=== PATIENT | male | born 1985 | race Caucasian/White ===

== ENCOUNTER 2021-04-17 11:55 | Emergency (ER) | payer OTHER ==
[~2021-04-17] VITALS: Ht 182.9 cm; Wt 97.5 kg
[2021-04-17] MEDS ORDERED: ONDANSETRON ODT 4 MG TAB.RAPDIS SL ONE (12:15)
[2021-04-17] MEDS ORDERED: IV NORMAL SALINE 1000 ML BAG IV ONE (12:15)
[2021-04-17 12:32] LABS: *BILIRUBIN,URIN 1+ (NEGATIVE); *BLOOD, URINE NEGATIVE (NEGATIVE); *CLARITY,URINE CLEAR (CLEAR); *COLOR,URINE DARK YELLOW (YELLOW); *KETONES,URINE 1+ (NEGATIVE); *UROBILINOGEN,URINE 0.2 E.U./dl (NORMAL); LEUKOCYTE ESTERASE ,URINE NEGATIVE (NEGATIVE); NITRITE, URINE NEGATIVE (NEGATIVE); UGLUCOSE NEGATIVE (NEGATIVE)
[2021-04-17 12:34] LABS: HEMATOCRIT 44.1 % (36.7-47.1); MEAN CORPUSCULAR HEMOGLOBIN 31.2 uug (23.8-33.4); PLATELET COUNT (AUTO) 321 K/uL (152-348)
[2021-04-17 12:41] LABS: CREATININE 1.1 mg/dL (0.6-1.3); POTASSIUM 4.2 mmol/L (3.5-5.1)
[2021-04-17] MEDS ORDERED: ONDANSETRON ODT 4 MG TAB.RAPDIS ONE (12:41)
[2021-04-17 12:46] LABS: BILIRUBIN,TOTAL 0.7 mg/dL (0.2-1.0); TOTAL PROTEIN, SERUM 8.6 g/dL (6.4-8.2)
--- NOTE | 2021-04-17 13:20 | NUR ---
Patient discharged to home in stable condition. Written and verbal after care instructions given. Patient verbalizes understanding of instructions. Stressed follow up or return to ER for worsening s/s.
[2021-04-17 13:23] VITALS: BP 116/73
== END 2021-04-17 13:23 | disposition home or self-care (01) ==
LOC: ER 12:04
DX: U07.1 COVID-19 (principal); R42 Dizziness and giddiness; G93.89 Other specified disorders of brain; R43.8 Other disturbances of smell and taste
CPT/HCPCS: 36415; 85025; A4663; J7030; Q0162

== ENCOUNTER 2021-04-24 09:33 | Emergency (ER) | payer OTHER ==
[~2021-04-24] VITALS: Ht 182.9 cm; Wt 97.5 kg
[2021-04-24] MEDS ORDERED: IBUPROFEN 800 MG TABLET PO ONE (10:15)
--- NOTE | 2021-04-24 10:27 | NUR ---
PT IS IN ROOM #2B. DR BLEDSOE EVALUATED THE PT.
[2021-04-24] MEDS ORDERED: IBUPROFEN 800 MG TABLET ONE (10:28)
[2021-04-24 11:04] LABS: HEMATOCRIT 40.7 % (36.7-47.1); MEAN CORPUSCULAR HEMOGLOBIN 30.7 uug (23.8-33.4); MEAN CORPUSCULAR VOLUME 91.4 fL (73.0-96.2); PLATELET COUNT (AUTO) 605 K/uL (152-348)
[2021-04-24 11:13] LABS: CREATININE 0.8 mg/dL (0.6-1.3); POTASSIUM 4.5 mmol/L (3.5-5.1)
[2021-04-24] MEDS ORDERED: IV NORMAL SALINE 250 ML IV ONE (12:16)
[2021-04-24] MEDS ORDERED: IOHEXOL 350 100 ML INFUS..BTL ONE (12:16)
[2021-04-24] MEDS ORDERED: SWABABLE VALVE TRANSFER SET EA MC ONE (12:16)
--- NOTE | 2021-04-24 13:19 | NUR ---
PT WAS EVALUATED BY DR BLEDSOE. PT WAS D/C'd TO HOME. D/C INSTRUCTIONS GIVEN TO THE PT BY DR BLEDSOE.
[2021-04-24 13:22] VITALS: BP 136/88
[2021-04-24] MEDS ORDERED: APIX5TAB PO (13:25)
== END 2021-04-24 13:30 | disposition home or self-care (01) ==
LOC: ER 09:35
DX: U07.1 COVID-19 (principal); I26.99 Other pulmonary embolism without acute cor pulmonale; J12.82 Pneumonia due to coronavirus disease 2019
CPT/HCPCS: 36415; 71045; 71275; 80048; 84484; 85025; 85379; 87426; 93005; 99285; Q9967; 70030-TC; A4663; J7050

== ENCOUNTER 2021-04-29 07:06 | Inpatient (IN) | payer OTHER ==
[~2021-04-29] VITALS: Ht 185.4 cm; Wt 98.4 kg
[~2021-04-29 07:06] MED LIST: APIX5TAB PO
[2021-04-29 08:20] LABS: HEMATOCRIT 39.3 % (36.7-47.1); MEAN CORPUSCULAR HEMOGLOBIN 30.7 uug (23.8-33.4); MEAN CORPUSCULAR VOLUME 89.8 fL (73.0-96.2); PLATELET COUNT (AUTO) 509 K/uL (152-348)
[2021-04-29 08:28] LABS: CREATININE 0.9 mg/dL (0.6-1.3); POTASSIUM 4.4 mmol/L (3.5-5.1)
[2021-04-29 08:43] LABS: BILIRUBIN,TOTAL 0.5 mg/dL (0.2-1.0); TOTAL PROTEIN, SERUM 8.9 g/dL (6.4-8.2)
[2021-04-29] MEDS ORDERED: MORPHINE SULFATE 4 MG/1 ML DISP.SYRIN IV ONE (09:15)
[2021-04-29] MEDS ORDERED: IV NORMAL SALINE 1000 ML BAG IV ONE (09:15)
[2021-04-29] MEDS ORDERED: ONDANSETRON 4 MG/2 ML VIAL IV ONE ×2 (09:15→14:15)
[2021-04-29] MEDS ORDERED: MORPHINE SULFATE 4 MG/1 ML DISP.SYRIN ONE (09:21)
[2021-04-29] MEDS ORDERED: ONDANSETRON 4 MG/2 ML VIAL ONE ×2 (09:21→14:14)
[2021-04-29] MEDS ORDERED: IOHEXOL 350 100 ML INFUS..BTL ONE (09:22)
[2021-04-29] MEDS ORDERED: IV NORMAL SALINE 250 ML IV ONE (09:22)
[2021-04-29] MEDS ORDERED: SWABABLE VALVE TRANSFER SET EA MC ONE (09:22)
--- NOTE | 2021-04-29 09:30 | NUR ---
Pt singed consent for CTA, placed in the chart.
--- NOTE | 2021-04-29 09:38 | NUR ---
Pt out of ER for CT.
--- NOTE | 2021-04-29 09:58 | NUR ---
Pt back from CT, resting in bed, denies pain.
[2021-04-29] MEDS ORDERED: ENOXAPARIN SODIUM 100 MG/ML DISP.SYRIN SQ ONE ×3 (10:30→20:54)
[2021-04-29] MEDS ORDERED: MAGNESIUM HYDROXIDE 30 ML LIQUID UDC PO PRN (13:00)
[2021-04-29] MEDS ORDERED: TEMAZEPAM 7.5 MG CAPSULE PO PRN (13:00)
[2021-04-29] MEDS ORDERED: ALBUTEROL SULFATE 8 GM HFA.AER.AD IH PRN (13:00)
[2021-04-29] MEDS ORDERED: ONDANSETRON 4 MG/2 ML VIAL IV PRN (13:00)
--- NOTE | 2021-04-29 13:24 | NUR ---
Patient is resting comfortably in bed with eyes closed, NAD noted.
[2021-04-29] MEDS ORDERED: HYDROMORPHONE 1 MG/1 ML DISP.SYRIN ONE (14:14)
[2021-04-29] MEDS ORDERED: HYDROMORPHONE 1 MG/1 ML DISP.SYRIN IV ONE (14:15)
--- NOTE | 2021-04-29 16:20 | NUR ---
Pt C/O Rt sided chest pain/crushing, [place] 5/325 po given.
[2021-04-29] MEDS ORDERED: AZITHROMYCIN 250 MG TABLET ONE (16:24)
[2021-04-29] MEDS: HYDROCODONE/APAP 5-325MG TABLET PO PRN ×2 (16:24→20:55)
[2021-04-29] MEDS: DEXAMETHASONE SOD PHOSPHATE 4 MG INJ IV SCH (16:24)
[2021-04-29] MEDS: ASCORBIC ACID 500 MG TABLET PO SCH (16:25)
[2021-04-29] MEDS ORDERED: DEXAMETHASONE SOD PHOSPHATE 10 MG INJ ONE (16:25)
[2021-04-29] MEDS ORDERED: CHOLECALCIFEROL 1,000 UNIT TABLET ONE (16:25)
[2021-04-29] MEDS: AZITHROMYCIN 250 MG TABLET PO SCH (16:25)
[2021-04-29] MEDS ORDERED: ASCORBIC ACID 500 MG TABLET ONE (16:25)
[2021-04-29] MEDS: CHOLECALCIFEROL 1,000 UNIT TABLET PO SCH (16:25)
[2021-04-29] MEDS ORDERED: HYDROCODONE/APAP 5-325MG TABLET ONE ×2 (16:27→20:55)
--- NOTE | 2021-04-29 17:33 | NUR ---
Dr Cabral at the bedside for MSE.
--- NOTE | 2021-04-29 19:00 | NUR ---
Hands off report given to Jose C BLACKWOOD.
--- NOTE | 2021-04-29 19:25 | NUR ---
pt a/o denies pain.
[2021-04-29] MEDS: ENOXAPARIN SODIUM 100 MG/ML DISP.SYRIN SQ SCH (20:55)
--- NOTE | 2021-04-29 22:13 | NUR ---
pt resting, states pain med was effective.
--- NOTE | 2021-04-30 05:41 | NUR ---
report to Agnieszka BLACKWOOD in ICU pt to go to room 4.
--- NOTE | 2021-04-30 06:20 | NUR ---
received patient and report from ER nurse , patient is awake , oriented , able to follow command , with non productive cough , oxygen 2l nc , sinus tachycardia . no fever, , iv intact on rac , complains of chest pain when coughing , 6/10
--- NOTE | 2021-04-30 06:27 | NUR ---
pt transported to room icu 4 pt is snehal status. Agnieszka in room to receive pt. pt transported via [facility] with all belongings.
[2021-04-30 06:30] VITALS: BP 127/71
[2021-04-30] MEDS: HYDROCODONE/APAP 5-325MG TABLET PO PRN (06:49)
--- NOTE | 2021-04-30 07:30 | NUR ---
Patient received. AAOx4. vitals stalbe in low sinus tachycardia. On 2LNC slightly tachypneic with some shortness of breath with exertion. Voiding via urinal. IV line patent. Will complete admission process and continue with care plan.
--- NOTE | 2021-04-30 07:30 | NUR ---
Patient seen by die repair Dr. Young.
--- NOTE | 2021-04-30 07:43 | NUR ---
HOME MEDICATIONS ENDORSED TO DAY SHIFT , ELOQUIS AND TYLENOL BOTTLES TO BE BROUGHT TO PHARMACY
[2021-04-30 08:00] VITALS: BP 116/72
--- NOTE | 2021-04-30 08:13 | NUR ---
1 Bottle of Eliquis and 1 bottle of otc tylenol placed in a pharmacy bad and taken down to pharmacy, at this time pt. refusing to signed stating "I wanna keep my medications at bedside and I don't want no one to take possession of it". At this time pt. educated on hospital policies and about safety issues, He was also explained that hospital is not responsible if medications gets lost while at bedside. Pharmacist informed and medication taken down and signed by nursing fabric coating supervisor and med. receipt placed in pt's file.
--- NOTE | 2021-04-30 08:22 | NUR ---
Admitting physician notified of pt's arrival to the unit.
[2021-04-30] MEDS: PANTOPRAZOLE SODIUM 40 MG TABLET.DR PO SCH (09:02)
[2021-04-30] MEDS: CHOLECALCIFEROL 1,000 UNIT TABLET PO SCH (09:02)
[2021-04-30] MEDS: ASCORBIC ACID 500 MG TABLET PO SCH (09:02)
[2021-04-30] MEDS: ENOXAPARIN SODIUM 100 MG/ML DISP.SYRIN SQ SCH ×2 (09:12→20:18)
[2021-04-30] MEDS: DEXAMETHASONE SOD PHOSPHATE 4 MG INJ IV SCH (09:15)
[2021-04-30 10:56] LABS: HEMATOCRIT 36.3 % (36.7-47.1); MEAN CORPUSCULAR VOLUME 91.2 fL (73.0-96.2); PLATELET COUNT (AUTO) 443 K/uL (152-348)
[2021-04-30 11:29] LABS: BILIRUBIN,TOTAL 0.3 mg/dL (0.2-1.0); MAGNESIUM 2.1 mg/dL (1.8-2.4); TOTAL PROTEIN, SERUM 8.2 g/dL (6.4-8.2)
--- NOTE | 2021-04-30 11:54 | NUR ---
Clinical Social Work Note JANNA consult was requested for support with financial resources. Patient is a 36 male who is alert and oriented x4. Patient stated Addendum: 04/30/21 at 1201 by JANNA LOAIZA Clinical Social Work Note JANNA consult was requested for support with financial resources. Patient is a 36 male who is alert and oriented x4. Patient presents with a calm mood and congruent affect. JANNA inquired about specific financial resources patient is in need of. Patient stated that he does not need financial resources, but that he was interested in mental health resources. JANNA provided patient with mental health agencies in the [place]. JANNA provided the following resources to patient: [facility] [address], [address] [place] [address] , [facility] [address] [place] [address] , and [facility] [address] [place] [place], [place] [id number] [phone]. Patient stated he was not in need of additional resources.
[2021-04-30 12:00] VITALS: BP 123/77
[2021-04-30] MEDS: HYDROMORPHONE 1 MG/1 ML DISP.SYRIN IV PRN ×2 (14:59→20:42)
[2021-04-30] MEDS: AZITHROMYCIN 250 MG TABLET PO SCH (15:56)
[2021-04-30 16:00] VITALS: BP 136/92
[2021-04-30] MEDS: ACETAMINOPHEN 325 MG TABLET PO PRN (17:56)
[2021-04-30 20:00] VITALS: BP 118/62
--- NOTE | 2021-04-30 20:07 | NUR ---
received patient awake , able to follow command , room air , iv intact , denies distress , eating dinner
--- NOTE | 2021-04-30 21:09 | NUR ---
dr harris is here at bedside , had a long conversation with the patient
[2021-04-30 22:00] VITALS: BP 109/55
[2021-05-01] VITALS (8 sets, daily range): BP systolic 97–128; BP diastolic 62–85
[2021-05-01 05:06] LABS: HEMATOCRIT 34.6 % (36.7-47.1); MEAN CORPUSCULAR HEMOGLOBIN 30.9 uug (23.8-33.4); MEAN CORPUSCULAR VOLUME 91.7 fL (73.0-96.2); PLATELET COUNT (AUTO) 388 K/uL (152-348)
[2021-05-01 05:25] LABS: CREATININE 0.7 mg/dL (0.6-1.3); MAGNESIUM 2.2 mg/dL (1.8-2.4); PHOSPHOROUS 3.2 mg/dL (2.5-4.9); POTASSIUM 4.7 mmol/L (3.5-5.1)
[2021-05-01] MEDS: HYDROMORPHONE 1 MG/1 ML DISP.SYRIN IV PRN ×2 (05:26→17:55)
[2021-05-01] MEDS: PANTOPRAZOLE SODIUM 40 MG TABLET.DR PO SCH (06:06)
--- NOTE | 2021-05-01 06:30 | NUR ---
patient is awake , able to follow command , on room air , iv intact , continent , dilaudid given one hour prior , current pain level 1/ 10
--- NOTE | 2021-05-01 07:00 | NUR ---
Received pt. AAOx4. vitals stable on room air. Hemodynamically stable.
[2021-05-01] MEDS: ASCORBIC ACID 500 MG TABLET PO SCH (08:42)
[2021-05-01] MEDS: DEXAMETHASONE SOD PHOSPHATE 4 MG INJ IV SCH (08:42)
[2021-05-01] MEDS: CHOLECALCIFEROL 1,000 UNIT TABLET PO SCH (08:42)
[2021-05-01] MEDS: ENOXAPARIN SODIUM 100 MG/ML DISP.SYRIN SQ SCH ×2 (08:59→20:42)
[2021-05-01] MEDS: ACETAMINOPHEN 325 MG TABLET PO PRN (12:33)
[2021-05-01] MEDS: AZITHROMYCIN 250 MG TABLET PO SCH (16:27)
--- NOTE | 2021-05-01 17:40 | NUR ---
While setting up the tray for patient He stated "hey the said I can have the mediation the dilparishid".
[2021-05-02 00:01] VITALS: BP 108/69
--- NOTE | 2021-05-02 00:01 | NUR ---
Verbally communicative.
[2021-05-02 02:00] VITALS: BP 100/69
[2021-05-02 04:00] VITALS: BP 109/75
[2021-05-02] MEDS: HYDROMORPHONE 1 MG/1 ML DISP.SYRIN IV PRN ×2 (05:16→12:40)
[2021-05-02] MEDS: PANTOPRAZOLE SODIUM 40 MG TABLET.DR PO SCH (07:14)
--- NOTE | 2021-05-02 07:16 | NUR ---
Received pt. AAOX4. Hemodynamically stable, SBP within normal limits. On room air no tachypnea.
[2021-05-02 08:00] VITALS: BP 128/83
[2021-05-02] MEDS: DEXAMETHASONE SOD PHOSPHATE 4 MG INJ IV SCH (08:05)
[2021-05-02] MEDS: ASCORBIC ACID 500 MG TABLET PO SCH (08:05)
[2021-05-02] MEDS: CHOLECALCIFEROL 1,000 UNIT TABLET PO SCH (08:05)
[2021-05-02] MEDS ORDERED: APIXABAN 5 MG TABLET PO SCH (09:00)
[2021-05-02 12:00] VITALS: BP 118/66
--- NOTE | 2021-05-02 12:00 | NUR ---
Patient seen by attending physician, Rich Huynh. who updated pt. on imaging and lab results awaiting dcd orders.
[2021-05-02] MEDS ORDERED: APIX5TAB PO (12:22)
[2021-05-02] MEDS ORDERED: METH4TAB3 PO (12:22)
--- NOTE | 2021-05-02 12:30 | NUR ---
informed that at this time I spoke with medical lab scientist Rosalia when pt. was just admitted and she confirmed having the swabbs done in [facility] for covid test and again today she had confirmed having the swabs and as stated by her "I'm about to release a bunch of results".
--- NOTE | 2021-05-02 13:31 | NUR ---
DCD instructions given to patient, who verbalized understanding. Patient will be taken down via wheel chair, Premedicated for pain as requested vital s of 118/66 hr of 87 sinus. IV line dcd.
--- NOTE | 2021-05-02 13:34 | NUR ---
Dr. Villanueva called and informed that pcr results still under pending status and as stated "there's no need to resend pcr. Pt. has my number and He'll call to follow up about his pcr results".
== END 2021-05-02 14:05 | disposition home or self-care (01) | DRG 137 ==
LOC: ER 07:15 → TRANSITION 15:23 → CCU 04-30 06:02
PROVIDERS: ADMIT Internal Medicine; ATTEND Internal Medicine
DX: U07.1 COVID-19 (principal); I26.99 Other pulmonary embolism without acute cor pulmonale; J12.82 Pneumonia due to coronavirus disease 2019; J91.8 Pleural effusion in other conditions classified elsewhere; Z79.01 Long term (current) use of anticoagulants; D75.839 Thrombocytosis, unspecified; Z96.642 Presence of left artificial hip joint; Z91.81 History of falling; R74.01 Elevation of levels of liver transaminase levels
CPT/HCPCS: 36415; 70030-TC; 71045; 71275; 83605; 83615; 83735; 84100; 85025; 85730; 86140; 87040; 93005; A4663; G0378; J1100; J1170; J1650; J2270; J2405; J3535; J7030; J7050; Q0144; Q9967; U0003

== ENCOUNTER 2021-09-02 23:01 | Inpatient (IN) | payer OTHER ==
[~2021-09-02] VITALS: Ht 182.9 cm; Wt 106.8 kg
[~2021-09-02 23:01] MED LIST changes: +METH4TAB3 PO
[2021-09-03] MEDS ORDERED: METOPROLOL TARTRATE 5 MG/5 ML VIAL IVP ONE ×2 (00:10→00:15)
[2021-09-03 00:21] LABS: HEMATOCRIT 47.5 % (36.7-47.1); MEAN CORPUSCULAR HEMOGLOBIN 30.6 uug (23.8-33.4); PLATELET COUNT (AUTO) 271 K/uL (152-348)
[2021-09-03 00:39] LABS: CARBON DIOXIDE 20 mmol/L (21-32); CHLORIDE 102 mmol/L (98-107); CREATININE 1.1 mg/dL (0.6-1.3); GLUCOSE 164 mg/dL (74-106); POTASSIUM 3.9 mmol/L (3.5-5.1); UREA NITROGEN, BLOOD 16 mg/dL (7-18)
[2021-09-03 00:51] LABS: ALANINE AMINOTRANSFERASE 46 U/L (16-63); ALKALINE PHOSPHATASE 62 U/L (50-136); ASPARTATE AMINOTRANSFERASE 23 U/L (15-37); BILIRUBIN,DIRECT 0.2 mg/dL (0.0-0.2); TOTAL PROTEIN, SERUM 8.2 g/dL (6.4-8.2)
[2021-09-03] MEDS ORDERED: IOHEXOL 350 100 ML INFUS..BTL ONE (01:10)
[2021-09-03] MEDS ORDERED: SWABABLE VALVE TRANSFER SET EA MC ONE (01:10)
[2021-09-03] MEDS ORDERED: IV NORMAL SALINE 250 ML IV ONE (01:10)
--- NOTE | 2021-09-03 02:44 | NUR ---
Called [facility] for CTA to be read. they said it would take another 30mins.
[2021-09-03] MEDS ORDERED: HYDROCODONE/APAP 10-325 MG TABLET PO ONE (03:15)
[2021-09-03] MEDS ORDERED: ONDANSETRON ODT 4 MG TAB.RAPDIS SL ONE (03:15)
[2021-09-03] MEDS ORDERED: HYDROCODONE/APAP 10-325 MG TABLET ONE (03:16)
[2021-09-03] MEDS ORDERED: ONDANSETRON ODT 4 MG TAB.RAPDIS ONE (03:16)
[2021-09-03] MEDS ORDERED: HYDROMORPHONE 1 MG/1 ML DISP.SYRIN ONE ×2 (03:26→09:30)
[2021-09-03] MEDS ORDERED: ONDANSETRON 4 MG/2 ML VIAL ONE ×2 (03:26→09:30)
[2021-09-03] MEDS ORDERED: ONDANSETRON 4 MG/2 ML VIAL IV ONE (03:30)
[2021-09-03] MEDS ORDERED: HYDROMORPHONE 1 MG/1 ML DISP.SYRIN IV ONE (03:30)
[2021-09-03 03:49] LABS: *AMPHETAMINE, URINE NEGATIVE (NEGATIVE); *CANNABINOID, URINE NEGATIVE (NEGATIVE); *COCCAINE, URINE NEGATIVE (NEGATIVE); *OPIATE, URINE NEGATIVE (NEGATIVE); *PHENCYCLIDINE SCREEN,URINE NEGATIVE (NEGATIVE)
[2021-09-03] MEDS ORDERED: IV NORMAL SALINE 1000 ML BAG IV ONE ×3 (04:15→05:30)
[2021-09-03] MEDS ORDERED: APIX5TAB PO (04:33)
[2021-09-03] MEDS ORDERED: LORAZEPAM 2 MG/1 ML VIAL ONE (05:21)
[2021-09-03] MEDS ORDERED: LORAZEPAM 2 MG/1 ML VIAL IV ONE (05:30)
[2021-09-03] MEDS ORDERED: ACETAMINOPHEN 325 MG TABLET PO PRN (06:45)
[2021-09-03] MEDS ORDERED: ONDANSETRON 4 MG/2 ML VIAL IV PRN ×2 (06:45→09:45)
[2021-09-03] MEDS ORDERED: MAGNESIUM HYDROXIDE 30 ML LIQUID UDC PO PRN (06:45)
[2021-09-03] MEDS ORDERED: REMEDY ESSENTIAL ZINC PASTE 113 GM TP PRN (06:45)
--- NOTE | 2021-09-03 07:00 | NUR ---
Received patient awake in bed, alert and orientedx4. No complaints of pain/discomfort. Vitals as follows; BP-135/70 DE-115 RR-20 T-97.8 SPO2-98%
--- NOTE | 2021-09-03 08:04 | NUR ---
Called for tele bed, said nurse will call me back.
--- NOTE | 2021-09-03 08:50 | NUR ---
Patient complaints of sharp pain 7/10 on left lateral chest. Vitals as follows; BP-138/80 VT-117 RR-20 T-97.8 SPO2-97% RA. Per MD verbal order lovenox 80mg given SQ on abdomen RLQ.
[2021-09-03] MEDS ORDERED: ENOXAPARIN SODIUM 80 MG/0.8 ML DISP.SYRIN SQ ONE (08:57)
[2021-09-03] MEDS ORDERED: HYDROMORPHONE 1 MG/1 ML DISP.SYRIN IV STA (09:31)
[2021-09-03] MEDS ORDERED: ENOXAPARIN SODIUM 80 MG/0.8 ML DISP.SYRIN SQ SCH (09:45)
--- NOTE | 2021-09-03 10:00 | NUR ---
Patient stated he feels better now chest pain lateral side 05/27. Vitals; BP-121/80 TX-95 RR-18 SPO2 98%.
--- NOTE | 2021-09-03 10:05 | NUR ---
Informed admitting doctor ponce garcia in regards with patients episode of chest pain and the interventions given as ordered. said he will come to see the pt.
--- NOTE | 2021-09-03 10:22 | NUR ---
FR[employer]K AUXILIARY ponce garcia on bedside.
--- NOTE | 2021-09-03 10:46 | NUR ---
Report given to nurse jacinto, pt will be in room 309 telemetry.
--- NOTE | 2021-09-03 11:14 | NUR ---
Patient transferred to telemetry via stretcher, patient awake alert and orientedx4. No complaints of pain at this time. Vitals: BP-129/80 FL-95 RR-20 T-97 SPO2-97% RA.
--- NOTE | 2021-09-03 11:30 | NUR ---
ADMITTED VIA [facility]. ORIENTED TO SURROUNDINGS. C/O SEVERE PAIN LEFT CHEST. Donald [employer] OCCUPATIONAL THERAPIST NOTIFIED. VS STABLE. TELEMETRY SHOWS ST AT 94-96/MIN.
[2021-09-03 11:44] VITALS: BP 110/81
[2021-09-03] MEDS ORDERED: CEFTRIAXONE 1 G VIAL IV SCH (12:00)
[2021-09-03] MEDS ORDERED: APIXABAN 5 MG TABLET PO SCH (12:15)
[2021-09-03] MEDS: IV NS 1000 ML 1,000 ML IV PRN (12:50)
[2021-09-03] MEDS: CEFTRIAXONE 1 G in IV DEXTROSE 5% 50 ML IV SCH (12:51)
[2021-09-03] MEDS: MORPHINE SULFATE 2 MG/1 ML DISP.SYRIN IV PRN ×3 (12:52→22:26)
[2021-09-03 16:14] VITALS: BP 108/66
[2021-09-03] MEDS: APIXABAN 5 MG TABLET PO SCH (17:29)
--- NOTE | 2021-09-03 17:57 | NUR ---
Reassess was not done patient was in ER at that time
--- NOTE | 2021-09-03 19:00 | NUR ---
Patient alert oriented, no sob no chest pain, no complain of pain at this time, on room air, tele monitor sinus rhythm. cont to monitor.
[2021-09-03 20:00] VITALS: BP 112/73
[2021-09-04 00:17] VITALS: BP 106/67
[2021-09-04] MEDS: IV NS 1000 ML 1,000 ML IV PRN (03:50)
[2021-09-04 04:00] VITALS: BP 107/70
--- NOTE | 2021-09-04 05:02 | NUR ---
Patient asleep but arousable, no sob no chest pain at this time, cont on pain management due left chest pain, tele sinus rhythm, cont to monitor.
[2021-09-04] MEDS: MORPHINE SULFATE 2 MG/1 ML DISP.SYRIN IV PRN ×2 (06:08→08:56)
--- NOTE | 2021-09-04 06:22 | NUR ---
complain of chest area pain, requested Morphine, given as ordered, tele monitor sinus rhythm at this time, cont to monitor.
[2021-09-04 07:07] LABS: MEAN CORPUSCULAR HEMOGLOBIN 30.6 uug (23.8-33.4); MEAN CORPUSCULAR VOLUME 89.1 fL (73.0-96.2); PLATELET COUNT (AUTO) 219 K/uL (152-348)
[2021-09-04 07:30] LABS: CREATININE 0.8 mg/dL (0.6-1.3); MAGNESIUM 1.9 mg/dL (1.8-2.4); PHOSPHOROUS 2.9 mg/dL (2.5-4.9)
[2021-09-04 08:00] VITALS: BP 107/68
[2021-09-04] MEDS: APIXABAN 5 MG TABLET PO SCH ×2 (08:51→17:39)
[2021-09-04 11:04] VITALS: BP 113/69
[2021-09-04] MEDS: HYDROMORPHONE 1 MG/1 ML DISP.SYRIN IV PRN ×3 (11:58→23:05)
[2021-09-04] MEDS: CEFTRIAXONE 1 G in IV DEXTROSE 5% 50 ML IV SCH (12:00)
[2021-09-04 15:05] VITALS: BP 104/63
[2021-09-04 20:38] VITALS: BP 121/81
[2021-09-05 00:15] VITALS: BP 120/77
[2021-09-05 04:22] VITALS: BP 94/63
--- NOTE | 2021-09-05 06:38 | NUR ---
Patient alert oriented, no sob no chest pain, tele monitor sinus rhythm, no episode of tachy at this, still complain of chest pain, and headaches, medicated as ordered. cont to monitor.
--- NOTE | 2021-09-05 08:00 | NUR ---
awake alert and oriented, up and about in the room, tele SR70's, denies of chest pain, no shortness of breath, explained plan of care- verbalized understanding, safety measures in place
[2021-09-05] MEDS: APIXABAN 5 MG TABLET PO SCH (08:20)
--- NOTE | 2021-09-05 08:30 | NUR ---
seen by hospitalist- going home today
[2021-09-05] MEDS ORDERED: AZIT500T2 PO (08:37)
--- NOTE | 2021-09-05 10:11 | NUR ---
discharge instructions given- verbalized understanding, tele and ID bracelet removed, saline lock removed as well- no swelling/redness noted on site, all belongings with pt and form signed, waiting for to pick him up
--- NOTE | 2021-09-05 10:20 | NUR ---
here- escorted to car in stable condition under 's care
[2021-09-05] MEDS ORDERED: CEFTRIAXONE 2 G in IV DEXTROSE 5% 100 ML IV SCH (13:00)
== END 2021-09-05 10:20 | disposition home or self-care (01) | DRG 720 ==
LOC: ER 23:04 → TRANSITION 09-03 07:44 → TELE3 09-03 10:46
PROVIDERS: ADMIT Nurse Practitioner Acute Care; ATTEND Nurse Practitioner Acute Care
DX: A41.9 Sepsis, unspecified organism (principal); J15.9 Unspecified bacterial pneumonia; E66.9 Obesity, unspecified; R00.0 Tachycardia, unspecified; F17.210 Nicotine dependence, cigarettes, uncomplicated; Z79.01 Long term (current) use of anticoagulants; Z86.16 Personal history of COVID-19; Z86.711 Personal history of pulmonary embolism; Z87.01 Personal history of pneumonia (recurrent); Z96.649 Presence of unspecified artificial hip joint; Z20.822 Contact with and (suspected) exposure to COVID-19; R07.9 Chest pain, unspecified; E05.90 Thyrotoxicosis, unspecified without thyrotoxic crisis or storm; Z71.6 Tobacco abuse counseling; Z68.31 Body mass index [BMI] 31.0-31.9, adult
CPT/HCPCS: 36415; 71275; 83735; 84100; 84443; 84481; 84484; 85025; 85730; 93005; G0378; J0696; J1170; J1650; J2060; J2270; J2405; J3490; J7040; Q0162; Q9967